=== PATIENT | female | born 1985 | race Caucasian/White ===

== ENCOUNTER 2023-01-02 20:12 | Inpatient (IN) | payer OTHER, MEDICAID ==
[~2023-01-02] VITALS: Ht 144.8 cm; Wt 44.5 kg
[2023-01-02 21:01] VITALS: BP 119/68
--- NOTE | 2023-01-03 04:22 | NUR ---
pt ambulated to bed #4 with caregiver
--- NOTE | 2023-01-03 04:30 | NUR ---
Pt BIB caregiver from home c/o hematuria in suprapubic cath bag that started tonight. Pt c/o 07/08 pain at insertion site. Denies any other s/s. Hx- down syndrome, anemia, unspecified urethral stricture NKA
--- NOTE | 2023-01-03 04:42 | NUR ---
URINE HANDED TO LAB CLS
[2023-01-03 04:48] LABS: APPEARANCE,URINE CLEAR (CLEAR); BILIRUBIN,URINE NEGATIVE (NEGATIVE); BLOOD, URINE 2+ (NEGATIVE); COLOR,URINE YELLOW (YELLOW); LEUKOCYTE ESTERASE ,URINE 3+ (NEGATIVE); NITRITE, URINE POSITIVE (NEGATIVE); UGLUCOSE NEGATIVE (NEGATIVE)
[2023-01-03 04:51] LABS: RBC,URINE TOO NUMEROUS TO COUN /HPF (0-5); WBC,URINE 20-60 /HPF (0-5)
--- NOTE | 2023-01-03 05:45 | NUR ---
PT BLOOD DRAWS TAKEN AND RECEIVED BY LAB
--- NOTE | 2023-01-03 05:45 | NUR ---
dr nelson at beside doing us
[2023-01-03 05:49] LABS: BASOPHILS % (AUTO) 1.2 % (0.0-2.0); EOSINOPHILS % (AUTO) 1.6 % (0.0-4.0); HEMOGLOBIN 13.3 g/dL (12.0-16.0); LYMPHOCYTES # (AUTO) 0.4 K/uL (2.5-16.5); LYMPHOCYTES % (AUTO) 14.6 % (20.5-51.1); MEAN CORPUSCULAR HEMOGLOBIN 35 pg (27-31); MEAN CORPUSCULAR HGB CONC 33 g/dL (33-37); MEAN CORPUSCULAR VOLUME 103.7 fL (80-94); MONOCYTES # (AUTO) 0.2 K/uL (0.8-1.0); MONOCYTES % (AUTO) 6.9 % (1.7-9.3); NEUTROPHILS # (AUTO) 2.2 K/uL (1.8-7.7); NEUTROPHILS % (AUTO) 75.7 % (42.2-75.2); PLATELET COUNT (AUTO) 172 K/uL (140-450); RED BLOOD CELL COUNT(AUTO) 3.86 MIL/uL (4.20-5.40); RED CELL DISTRIBUTION WIDTH 13.7 % (11.6-13.7); WHITE BLOOD COUNT (AUTO) 2.9 K/uL (4.8-10.8)
[2023-01-03 05:58] LABS: CARBON DIOXIDE 26.5 mmol/L (21-32); CREATININE 2.1 mg/dL (0.6-1.3); POTASSIUM 4.5 mmol/L (3.5-5.1)
[2023-01-03] MEDS ORDERED: PIPERACILLIN/TAZOBACTAM 3.375 GM in DEXTROSE 5% 50 ML IV ONE (06:20)
--- NOTE | 2023-01-03 06:30 | NUR ---
manfred swab obtained and sent to lab. blood cultures drawn and sent to lab
[2023-01-03] MEDS ORDERED: PIPERACILLIN/TAZOBACTAM 3.375 GM VIAL IV ONE ×2 (06:44→13:26)
[2023-01-03] MEDS ORDERED: NACL 0.9% 1,000 ML IV ONE (07:15)
[2023-01-03] MEDS ORDERED: DOCUSATE SODIUM 100 MG GELCAP PO PRN (08:00)
[2023-01-03] MEDS ORDERED: ONDANSETRON 4 MG/2 ML VIAL IVP PRN (08:00)
[2023-01-03] MEDS ORDERED: MORPHINE SULFATE 2 MG/ML SYR IVP PRN (08:00)
[2023-01-03] MEDS ORDERED: MAG SULF 2000 MG/WATER PREMIX 50 ML IV PRN (08:00)
[2023-01-03] MEDS ORDERED: POTASSIUM CHLORIDE 10 MEQ TABER PO PRN (08:00)
[2023-01-03] MEDS ORDERED: LORazepam 2 MG/ML VIAL IVP PRN (08:00)
[2023-01-03] MEDS ORDERED: ACETAMINOPHEN 325 MG TAB PO PRN (08:00)
[2023-01-03] MEDS ORDERED: ZOLPIDEM 10 MG TAB PO PRN (08:00)
[2023-01-03] MEDS: PIPERACILLIN/TAZOBACTAM 3.375 GM in DEXTROSE 5% 50 ML IV SCH ×2 (13:34→21:51)
[2023-01-03 15:45] VITALS: BP 113/51
--- NOTE | 2023-01-03 15:45 | NUR ---
PT ARRIVED TO [facility] VIA WHEELCHAIR AMBULATES TO ROOM. PT ORIENTED TO UNIT, ROOM, AND RESTROOM. PT IS AOX3. RESPIRATIONS EVEN AND UNLABORED ON RA. PT ABLE TO VERBALIZE NEEDS. IV ON R WRIST 20G SL. ALL SAFETY PRECAUTIONS IN PLACE. CALL LIGHT WITHIN REACH. VS: TEMP 98.8, P 88, BP 113/51, RR 18, O2 SATURATING AT 99%.
--- NOTE | 2023-01-03 19:05 | NUR ---
ENDORSED PT TO FUR TINTER NURSE FOR CONTINUITY OF CARE. PT STABLE.
--- NOTE | 2023-01-03 19:20 | NUR ---
RECEIVED REPORT FROM DAY SHIFT RN FOR CONTINUITY OF CARE. PT IS AWAKE AND ALERT. PT IS SITTING BY BEDSIDE DRAWING ON THE TABLE. NOT IN ANY DISTRESS. POC DISCUSSED. WILL CONTINUE TO MONITOR THE PT.
[2023-01-04] VITALS: BP 102/50
--- NOTE | 2023-01-04 01:00 | NUR ---
PT IS SLEEPING COMFORTABLY IN BED. PT NOT IN ANY DISTRESS. BREATHING EVEN AND UNLABORED. WILL CONTINUE TO MONITOR THE PT.
--- NOTE | 2023-01-04 03:40 | NUR ---
CHECKED ON PT. PT HAS SUPRAPUBIC CATH WITH DRAINAGE BAG ON LEG. PT EMPTIES IT HERSELF. STATES URINE IS YELLOW.
[2023-01-04] MEDS: PIPERACILLIN/TAZOBACTAM 3.375 GM in DEXTROSE 5% 50 ML IV SCH ×2 (04:46→13:15)
[2023-01-04 06:30] LABS: BASOPHILS % (AUTO) 1.3 % (0.0-2.0); EOSINOPHILS # (AUTO) 0.1 K/uL (0-0.4); EOSINOPHILS % (AUTO) 2.3 % (0.0-4.0); HEMATOCRIT 35.3 % (36-48); HEMOGLOBIN 11.9 g/dL (12.0-16.0); LYMPHOCYTES # (AUTO) 0.5 K/uL (2.5-16.5); LYMPHOCYTES % (AUTO) 15.4 % (20.5-51.1); MEAN CORPUSCULAR HEMOGLOBIN 35 pg (27-31); MEAN CORPUSCULAR HGB CONC 34 g/dL (33-37); MEAN CORPUSCULAR VOLUME 103.2 fL (80-94); MONOCYTES # (AUTO) 0.3 K/uL (0.8-1.0); MONOCYTES % (AUTO) 7.7 % (1.7-9.3); NEUTROPHILS # (AUTO) 2.5 K/uL (1.8-7.7); NEUTROPHILS % (AUTO) 73.3 % (42.2-75.2); PLATELET COUNT (AUTO) 157 K/uL (140-450); RED BLOOD CELL COUNT(AUTO) 3.42 MIL/uL (4.20-5.40); RED CELL DISTRIBUTION WIDTH 13.8 % (11.6-13.7); WHITE BLOOD COUNT (AUTO) 3.4 K/uL (4.8-10.8)
[2023-01-04 06:46] LABS: ANION GAP 12.1 (8-16); CARBON DIOXIDE 26.8 mmol/L (21-32); CREATININE 2.1 mg/dL (0.6-1.3); POTASSIUM 4.9 mmol/L (3.5-5.1)
--- NOTE | 2023-01-04 07:15 | NUR ---
ENDORSED PT TO DAY SHIFT RN FOR CONTINUITY OF CARE. PT IS STABLE.
--- NOTE | 2023-01-04 07:16 | NUR ---
RECEIVED BEDSIDE REPORT FROM NIGHTSHIFT NURSE. PT IS AWAKE, AOX3, NO SIGNS OF DISTRESS, NO REPORTS OF PAIN, ON RM AIR, IV TO RIGHT WRIST 20G SALINE LOCK. NO FURTHER NEEDS ARE TO BE MET AT THIS TIME, WILL CONTINUE WITH CARE. BED IN LOWEST POSITION, 2 SIDE RAILS UP, CALL LIGHT PLACED WITHIN REACH. REORIENTED PT TO CALL LIGHT.
[2023-01-04 08:00] VITALS: BP 132/74
[2023-01-04] MEDS ORDERED: CEPH500C16 PO (14:54)
--- NOTE | 2023-01-04 15:27 | NUR ---
PLANER OPERATOR / GRADER RECEIVED A DC ORDER AFTER SPEAKING WITH DR LARA REGARDING FACILITY TRANSPORT AND POST DC ANTIBIOTICS. PATIENT WILL DC ON PO ABX AND FACILITY WILL PROVIDE TRANSPORT. SPOKE WITH THE PATIENTS SISTER BARRIE WHO GAVE THE PHONE NUMBER FOR [facility]GAN ([phone]) WHO WILL MAKE ARRANGEMENTS TO CLIENT SERVER DEVELOPER THE PATIENT. NUMBER AND DC PLAN ENDORSED TO THE PATIENTS MEHDI ROWLAND.
--- NOTE | 2023-01-04 15:45 | NUR ---
PT INFORMED OF DISCHARGE ORDER. DISCHARGE INSTRUCTIONS PROVIDED, PATIENT VERBALIZED UNDERSTANDING. IV REMOVED. PT VITAL SIGNS STABLE, NO SIGNS OR REPORTS OF DISTRESS. PT REPORTS BEING EXCITED TO LEAVE. PT LEFT WITH SISTER.
== END 2023-01-04 17:50 | disposition home or self-care (01) | DRG 690 ==
LOC: MED 20:12 → MTU 01-03 06:42 → MMU 01-03 15:34
PROVIDERS: ADMIT Family Medicine; ATTEND Family Medicine
DX: N39.0 Urinary tract infection, site not specified (principal); R31.9 Hematuria, unspecified; N18.9 Chronic kidney disease, unspecified; Z20.822 Contact with and (suspected) exposure to COVID-19; D72.810 Lymphocytopenia; Q90.9 Down syndrome, unspecified; D63.1 Anemia in chronic kidney disease; Z93.50 Unspecified cystostomy status
CPT/HCPCS: 36415; 80048; 81001; 83605; 83735; 85025; 87040; 87081; 87086; 96365; 99285; J2543; J7060

== ENCOUNTER 2023-04-24 00:50 | Emergency (ER) | payer OTHER, MEDICAID ==
[~2023-04-24] VITALS: Ht 142.2 cm; Wt 42.2 kg
[~2023-04-24 00:50] MED LIST: CEPH500C16 PO
[2023-04-24 01:18] VITALS: BP 107/56; PULSE 60; RESP 16; TEMP 97.8; O2SAT 100
--- NOTE | 2023-04-24 01:22 | NUR ---
to lobby a/w bed ambulatory
--- NOTE | 2023-04-24 01:34 | NUR ---
PT TAKEN TO BED 7
--- NOTE | 2023-04-24 02:49 | NUR ---
Dr. Gleason examining patient.
[2023-04-24 03:45] VITALS: BP 107/56; PULSE 60; RESP 16; TEMP 97.8; O2SAT 100
--- NOTE | 2023-04-24 03:45 | NUR ---
Patient discharged with v/s stable. Written and verbal after care instructions given and explained. Patient verbalized understanding. Ambulatory with by caregiver. All questions addressed prior to discharge. Advised to follow up with PMD.
== END 2023-04-24 03:45 | disposition home or self-care (01) ==
LOC: MED 00:50
DX: T83.028A Displacement of other urinary catheter, initial encounter (principal); R33.9 Retention of urine, unspecified; Z79.2 Long term (current) use of antibiotics; Y84.6 Urinary catheterization as the cause of abnormal reaction of the patient, or of later complication, without mention of misadventure at the time of the procedure
CPT/HCPCS: 51702; 99284

== ENCOUNTER 2023-07-04 12:03 | Emergency (ER) | payer OTHER, MEDICAID ==
[~2023-07-04] VITALS: Ht 142.7 cm; Wt 42.6 kg
[2023-07-04 12:49] VITALS: BP 89/50; PULSE 75; RESP 20; TEMP 98; O2SAT 96
[2023-07-04] MEDS ORDERED: HYDROcodone/APAP 5/325 MG 1 TAB TAB PO ONE (13:25)
[2023-07-04] MEDS ORDERED: NACL 0.9% 500 ML IV ONE (13:30)
[2023-07-04 13:41] LABS: BASOPHILS % (AUTO) 0.8 % (0.0-2.0); EOSINOPHILS # (AUTO) 0.1 K/uL (0-0.4); EOSINOPHILS % (AUTO) 1.2 % (0.0-4.0); HEMATOCRIT 30.6 % (36-48); HEMOGLOBIN 10.3 g/dL (12.0-16.0); LYMPHOCYTES # (AUTO) 0.5 K/uL (2.5-16.5); MEAN CORPUSCULAR HEMOGLOBIN 35 pg (27-31); MEAN CORPUSCULAR HGB CONC 34 g/dL (33-37); MEAN CORPUSCULAR VOLUME 102.9 fL (80-94); MONOCYTES # (AUTO) 0.3 K/uL (0.8-1.0); MONOCYTES % (AUTO) 6.3 % (1.7-9.3); NEUTROPHILS # (AUTO) 4.4 K/uL (1.8-7.7); NEUTROPHILS % (AUTO) 81.7 % (42.2-75.2); PLATELET COUNT (AUTO) 158 K/uL (140-450); RED BLOOD CELL COUNT(AUTO) 2.98 MIL/uL (4.20-5.40); RED CELL DISTRIBUTION WIDTH 14.2 % (11.6-13.7); WHITE BLOOD COUNT (AUTO) 5.4 K/uL (4.8-10.8)
[2023-07-04 13:50] LABS: APPEARANCE,URINE CLEAR (CLEAR); BILIRUBIN,URINE NEGATIVE (NEGATIVE); BLOOD, URINE 3+ (NEGATIVE); COLOR,URINE YELLOW (YELLOW); LEUKOCYTE ESTERASE ,URINE 3+ (NEGATIVE); NITRITE, URINE POSITIVE (NEGATIVE); PH,URINE 6.5 (5.0-9.0); PROTEIN,URINE 2+ (NEGATIVE); UGLUCOSE NEGATIVE (NEGATIVE); UROBILINOGEN,URINE 0.2 EU/dL (0.2 - 1)
[2023-07-04 13:51] VITALS: O2SAT 89
[2023-07-04 14:02] LABS: ALBUMIN 3.3 g/dL (3.4-5.0); ANION GAP 11.5 (8-16); CALCIUM 8.9 mg/dL (8.5-10.1); CARBON DIOXIDE 24.9 mmol/L (21-32); CREATININE 1.9 mg/dL (0.6-1.3); POTASSIUM 4.4 mmol/L (3.5-5.1); TOTAL BILIRUBIN 0.3 mg/dL (0.0-1.0); TOTAL PROTEIN, SERUM 7.2 g/dL (6.4-8.2)
[2023-07-04 14:13] LABS: BACTERIA,URINE 10-30 (MOD) /HPF (None Seen); SQUAMOUS EPITHELIAL CELL,UR 0-3 (FEW) /LPF (0-3 (FEW))
[2023-07-04] MEDS ORDERED: cefTRIAXone 500 MG VIAL ONE (15:07)
[2023-07-04] MEDS ORDERED: CEPH-588 PO ×2 (16:16→16:17)
[2023-07-04 16:30] VITALS: BP 98/62; PULSE 75; RESP 18; TEMP 98
== END 2023-07-04 16:25 | disposition home or self-care (01) ==
LOC: MED 12:03
DX: N39.0 Urinary tract infection, site not specified (principal); N18.9 Chronic kidney disease, unspecified; Z79.899 Other long term (current) drug therapy
CPT/HCPCS: 36415; 74176; 80053; 81001; 83690; 85025; 87086; 96361; 96365; 99285; J0696; J7030

== ENCOUNTER 2023-08-17 10:36 | Emergency (ER) | payer OTHER, MEDICAID ==
[~2023-08-17] VITALS: Ht 142.2 cm; Wt 44.5 kg
[~2023-08-17 10:36] MED LIST changes: +CEPH-588 PO
[2023-08-17 10:44] VITALS: BP 94/66; PULSE 73; RESP 16; TEMP 97.4; O2SAT 98
[2023-08-17 11:53] LABS: BASOPHILS % (AUTO) 1.1 % (0.0-2.0); EOSINOPHILS # (AUTO) 0.1 K/uL (0-0.4); EOSINOPHILS % (AUTO) 2.5 % (0.0-4.0); HEMATOCRIT 32.6 % (36-48); LYMPHOCYTES # (AUTO) 0.4 K/uL (2.5-16.5); LYMPHOCYTES % (AUTO) 14.5 % (20.5-51.1); MEAN CORPUSCULAR HEMOGLOBIN 36 pg (27-31); MEAN CORPUSCULAR HGB CONC 34 g/dL (33-37); MEAN CORPUSCULAR VOLUME 105.9 fL (80-94); MONOCYTES # (AUTO) 0.2 K/uL (0.8-1.0); MONOCYTES % (AUTO) 6.9 % (1.7-9.3); NEUTROPHILS # (AUTO) 2.3 K/uL (1.8-7.7); PLATELET COUNT (AUTO) 152 K/uL (140-450); RED BLOOD CELL COUNT(AUTO) 3.08 MIL/uL (4.20-5.40); RED CELL DISTRIBUTION WIDTH 15.3 % (11.6-13.7)
[2023-08-17 12:11] LABS: ALBUMIN 3.3 g/dL (3.4-5.0); ANION GAP 12.3 (8-16); CALCIUM 8.6 mg/dL (8.5-10.1); CREATININE 1.8 mg/dL (0.6-1.3); POTASSIUM 4.3 mmol/L (3.5-5.1); TOTAL BILIRUBIN 0.3 mg/dL (0.0-1.0); TOTAL PROTEIN, SERUM 7.4 g/dL (6.4-8.2)
[2023-08-17 12:22] LABS: APPEARANCE,URINE CLEAR (CLEAR); BILIRUBIN,URINE NEGATIVE (NEGATIVE); BLOOD, URINE 1+ (NEGATIVE); COLOR,URINE YELLOW (YELLOW); LEUKOCYTE ESTERASE ,URINE 3+ (NEGATIVE); NITRITE, URINE POSITIVE (NEGATIVE); PROTEIN,URINE NEGATIVE (NEGATIVE); UGLUCOSE NEGATIVE (NEGATIVE); UROBILINOGEN,URINE 0.2 EU/dL (0.2 - 1)
[2023-08-17] MEDS ORDERED: NACL 0.9% 1,000 ML IV ONE (12:40)
[2023-08-17] MEDS ORDERED: LIDOCAINE 4% PATCH 1 EA PATCH TP ONE (12:40)
[2023-08-17] MEDS ORDERED: ACETAMINOPHEN EXTRA STRENGTH 500 MG TAB PO ONE (12:40)
[2023-08-17 12:45] LABS: BACTERIA,URINE 2+ /HPF (None Seen); RBC,URINE 0-5 /HPF (0-5); SQUAMOUS EPITHELIAL CELL,UR 0-3 (FEW) /LPF (0-3 (FEW)); WBC,URINE 60-80 /HPF (0-5)
[2023-08-17] MEDS ORDERED: CEPH-588 PO (13:10)
[2023-08-17 13:45] VITALS: BP 96/66; PULSE 71; RESP 16; TEMP 98.1; O2SAT 98
== END 2023-08-17 13:45 | disposition home or self-care (01) ==
LOC: MED 10:36
DX: N39.0 Urinary tract infection, site not specified (principal); M54.6 Pain in thoracic spine; M54.50 Low back pain, unspecified; N18.4 Chronic kidney disease, stage 4 (severe); Z79.2 Long term (current) use of antibiotics
CPT/HCPCS: 36415; 80053; 81001; 81025; 83690; 85025; 87086; 96360; 99283; J7030

== ENCOUNTER 2023-09-14 10:35 | Emergency (ER) | payer OTHER, MEDICAID ==
[~2023-09-14] VITALS: Ht 144 cm; Wt 43.1 kg
[2023-09-14 10:56] VITALS: BP 96/59; PULSE 86; RESP 20; TEMP 97.8; O2SAT 99
[2023-09-14 12:01] LABS: BASOPHILS % (AUTO) 0.8 % (0.0-2.0); HEMATOCRIT 32.3 % (36-48); HEMOGLOBIN 11.1 g/dL (12.0-16.0); LYMPHOCYTES # (AUTO) 0.5 K/uL (2.5-16.5); LYMPHOCYTES % (AUTO) 12.3 % (20.5-51.1); MEAN CORPUSCULAR HEMOGLOBIN 36 pg (27-31); MEAN CORPUSCULAR HGB CONC 34 g/dL (33-37); MONOCYTES # (AUTO) 0.2 K/uL (0.8-1.0); MONOCYTES % (AUTO) 4.8 % (1.7-9.3); NEUTROPHILS # (AUTO) 3.1 K/uL (1.8-7.7); NEUTROPHILS % (AUTO) 81.1 % (42.2-75.2); PLATELET COUNT (AUTO) 155 K/uL (140-450); RED BLOOD CELL COUNT(AUTO) 3.05 MIL/uL (4.20-5.40); RED CELL DISTRIBUTION WIDTH 13.5 % (11.6-13.7); WHITE BLOOD COUNT (AUTO) 3.9 K/uL (4.8-10.8)
[2023-09-14 12:20] LABS: ANION GAP 16.2 (8-16); CALCIUM 8.7 mg/dL (8.5-10.1); CARBON DIOXIDE 24.2 mmol/L (21-32); CREATININE 1.9 mg/dL (0.6-1.3); POTASSIUM 4.4 mmol/L (3.5-5.1)
[2023-09-14] MEDS: ONDANSETRON 4 MG/2 ML VIAL IVP ONE (12:25)
[2023-09-14] MEDS: MORPHINE SULFATE 2 MG/ML SYR IVP ONE (12:25)
[2023-09-14 12:54] LABS: BILIRUBIN,URINE 1+ (NEGATIVE); BLOOD, URINE 3+ (NEGATIVE); LEUKOCYTE ESTERASE ,URINE 3+ (NEGATIVE); NITRITE, URINE POSITIVE (NEGATIVE); PH,URINE 6.5 (5.0-9.0); PROTEIN,URINE 2+ (NEGATIVE); UGLUCOSE NEGATIVE (NEGATIVE)
[2023-09-14 12:57] LABS: APPEARANCE,URINE CLOUDY (CLEAR); COLOR,URINE BLOODY (YELLOW)
[2023-09-14 13:03] LABS: LACTIC ACID 0.4 mmol/L (0.4-2.0)
[2023-09-14 13:12] LABS: ICTOTEST NEGATIVE (NEGATIVE); RBC,URINE >100 /HPF (0-5)
[2023-09-14 13:13] LABS: BACTERIA,URINE 2+ /HPF (None Seen); SQUAMOUS EPITHELIAL CELL,UR 0-3 (FEW) /LPF (0-3 (FEW))
[2023-09-14] MEDS: NACL 0.9% 1,000 ML IV ONE (13:13)
[2023-09-14] MEDS ORDERED: cefTRIAXone 1,000 MG VIAL ONE (13:32)
[2023-09-14] MEDS ORDERED: CEPH-588 PO (14:11)
[2023-09-14] MEDS ORDERED: ACET-5629 PO (14:12)
[2023-09-14] MEDS ORDERED: PHEN-1877 PO (14:12)
[2023-09-14] MEDS ORDERED: ACET-2619 PO (14:12)
[2023-09-14 14:44] VITALS: BP 96/59; PULSE 86; RESP 20; TEMP 97.8; O2SAT 99
== END 2023-09-14 14:44 | disposition home or self-care (01) ==
LOC: MED 10:35
DX: T83.511A Infection and inflammatory reaction due to indwelling urethral catheter, initial encounter (principal); N39.0 Urinary tract infection, site not specified; N18.4 Chronic kidney disease, stage 4 (severe); N17.9 Acute kidney failure, unspecified; N13.30 Unspecified hydronephrosis; Z79.899 Other long term (current) drug therapy; Z79.2 Long term (current) use of antibiotics; Y84.6 Urinary catheterization as the cause of abnormal reaction of the patient, or of later complication, without mention of misadventure at the time of the procedure
CPT/HCPCS: 36415; 74176; 80048; 81001; 81025; 83605; 83690; 85025; 87040; 87086; 96365; 96375; 99285; J0696; J2270; J2405; J7030